=== PATIENT | female | born 1985 | race Two or more races ===

== ENCOUNTER → 2025-06-03 | Outpatient (CLI) | payer MEDICAID, SELFPAY ==
--- NOTE | 2025-06-03 10:39 | XR_ITS ---
Examination: Duplex scan of the lower extremity, unilateral left Date and time of exam: June 03, 2025, 1047 hours COMPARISON: February 06, 2024 INDICATIONS: Positive for occlusive thrombus distal left superficial femoral vein and popliteal peroneal posterior tibial veins ultrasound February 06, 2024 Technique: Duplex scan of the extremity veins using B-mode/grayscale imaging and Doppler spectral analysis and color flow Attention is directed to internal echogenicity, compression and augmentation involving these veins, color flow assessment, spectral analysis Findings: Major deep venous structures in the extremity demonstrate normal course and caliber. There is no evidence of deep vein thrombosis. Normal color flow and spectral analysis Impression: Negative for DVT..
== END | disposition home or self-care (01) ==
PROVIDERS: PCP Internal Medicine; Referring Provider Internal Medicine; Visit Provider Internal Medicine
DX: Z86.718 Personal history of other venous thrombosis and embolism (principal)
CPT/HCPCS: 93971